=== PATIENT | male | born 1980 | race Caucasian/White ===

== ENCOUNTER 2021-07-25 11:25 | Emergency (ER) | payer MEDICAID ==
[~2021-07-25] VITALS: Ht 175.3 cm; Wt 82.3 kg
[2021-07-25 12:12] VITALS: BP 109/61
[2021-07-25] MEDS ORDERED: triamcinolone acetonide 40mg/ml inj IM ONE (14:05)
[2021-07-25] MEDS ORDERED: dexamethasone 4mg/ml inj IM ONE (14:05)
[2021-07-25] MEDS ORDERED: PRED20TA PO (14:07)
== END 2021-07-25 14:58 | disposition home or self-care (01) ==
LOC: ER 11:25
DX: L23.7 Allergic contact dermatitis due to plants, except food (principal)
CPT/HCPCS: 96372; 99284; J1100; J3301